=== PATIENT | female | born 1970 | race Two or more races ===

== ENCOUNTER 2018-05-14 18:27 | Emergency (ER) | payer SELFPAY ==
[~2018-05-14] VITALS: Ht 170.2 cm; Wt 136.1 kg
[2018-05-14 18:50] VITALS: BP 192/128
[2018-05-14] MEDS ORDERED: FAMOTIDINE (10MG/ML) 2ML VL IV ONE (19:15)
[2018-05-14] MEDS ORDERED: cloNIDine HCL 0.1 MG TAB PO ONE (19:15)
[2018-05-14] MEDS ORDERED: methylPREDNISolone SOD SUCC 125 MG/2 ML VL IV ONE (19:15)
== END 2018-05-15 02:34 | disposition left against medical advice (07) ==
LOC: ER 18:27
DX: I16.0 Hypertensive urgency (principal); T78.40XA Allergy, unspecified, initial encounter; E11.9 Type 2 diabetes mellitus without complications; M32.9 Systemic lupus erythematosus, unspecified; I10 Essential (primary) hypertension; Z88.0 Allergy status to penicillin; Z53.29 Procedure and treatment not carried out because of patient's decision for other reasons; X58.XXXA Exposure to other specified factors, initial encounter
CPT/HCPCS: 93005; 94761